=== PATIENT | male | born 1980 | race African-American/Black ===

== ENCOUNTER 2024-04-16 21:37 | Inpatient (IN) | payer OTHER ==
[2024-04-16 22:15] VITALS: BMI 28.5
[2024-04-16] MEDS ORDERED: LOPERAMIDE HCL 2 MG CAPSULE PO PRN (22:23)
[2024-04-16] MEDS ORDERED: NALOXONE HCL 0.4 MG/ML VIAL IVPUSH PRN (22:23)
[2024-04-16] MEDS ORDERED: NICOTINE POLACRILEX 2 MG LOZENGE BC PRN (22:23)
[2024-04-16] MEDS ORDERED: POLYETHYLENE GLYCOL (HEALTHYLAX) 3350 17 GM PACKET PO PRN (22:23)
[2024-04-16] MEDS ORDERED: BENZOCAINE/MENTHOL (CHLORASEPTIC ) LOZENGE MM PRN (22:23)
[2024-04-16] MEDS ORDERED: NICOTINE POLACRILEX 2 MG GUM BUC PRN (22:23)
[2024-04-16] MEDS ORDERED: BENZONATATE 200 MG CAPSULE PO PRN (22:23)
[2024-04-16] MEDS ORDERED: NALOXONE (NARCAN) HCL 4 MG/0.1 ML SPRAY NS PRN (22:23)
[2024-04-16] MEDS ORDERED: IBUPROFEN 400 MG TABLET (FP) PO PRN (22:23)
[2024-04-16] MEDS ORDERED: MAG HYDROX/AL HYDROX/SIMETH 30 ML UNIT-DOSE CUP PO PRN (22:23)
[2024-04-16] MEDS ORDERED: guaiFENesin 600 MG TABLET.ER (FP) PO PRN (22:23)
[2024-04-16] MEDS ORDERED: MAGNESIUM HYDROX 2400MG/30ML ORAL SUSPENSION 30 ML CUP PO PRN (22:23)
[2024-04-16] MEDS ORDERED: ACETAMINOPHEN 325 MG TABLET (FP) PO PRN (22:23)
[2024-04-16] MEDS ORDERED: IBUPROFEN 600 MG TABLET (FP) PO PRN (22:23)
[2024-04-16] MEDS: MELATONIN 5 MG TABLETS PO SCH (23:33)
[2024-04-17] MEDS: PRENATAL VITAMINS W/ FOLIC ACID TABLET (FP) PO SCH (09:00)
[2024-04-17] MEDS: hydrOXYzine PAMOATE 25 MG CAPSULE (FP) PO PRN (10:21)
[2024-04-17] MEDS: OLANZapine 7.5 MG TABLET PO SCH (21:22)
[2024-04-17] MEDS: METHOCARBAMOL 500 MG TABLET PO PRN (21:22)
[2024-04-17] MEDS: THIAMINE 100 MG TABLET PO SCH (21:23)
[2024-04-18] MEDS: OLANZapine 2.5 MG TABLET PO PRN (10:56)
[2024-04-18] MEDS: OLANZapine 7.5 MG TABLET PO SCH (21:43)
[2024-04-20] MEDS: OLANZapine 10 MG TABLET PO SCH (21:07)
[2024-04-22] MEDS: METHYL SALICYLATE/MENTHOL 30 GM TUBE TP SCH (21:12)
[2024-04-23] MEDS: OLANZAPINE 20 MG, OLANZAPINE 5 MG PO SCH (21:16)
[2024-04-23] MEDS ORDERED: OLANZapine 10 MG TABLET PO SCH (22:00)
[2024-04-26 17:23] LABS: HIV INTERPRETATION NEGATIVE (NEGATIVE)
[2024-04-28 06:45] VITALS: BP 101/60; PULSE 88; RESP 16; TEMP 97.9
== END 2024-04-28 11:44 | disposition home or self-care (01) | DRG 772 ==
LOC: YASAS 21:37 → Y3NR 23:11 → Y5N 04-17 11:16
PROVIDERS: ADMIT Allergy & Immunology; ATTEND Psychiatry & Neurology Pain Medicine
PROC: HZ42ZZZ Group Counseling for Substance Abuse Treatment, Cognitive-Behavioral (ICD-10-PCS; principal; 2024-04-16)
DX: F10.20 Alcohol dependence, uncomplicated (principal); F16.20 Hallucinogen dependence, uncomplicated; F18.20 Inhalant dependence, uncomplicated; F12.20 Cannabis dependence, uncomplicated; F17.210 Nicotine dependence, cigarettes, uncomplicated; F31.9 Bipolar disorder, unspecified; F25.9 Schizoaffective disorder, unspecified; F19.282 Other psychoactive substance dependence with psychoactive substance-induced sleep disorder; F19.24 Other psychoactive substance dependence with psychoactive substance-induced mood disorder; Z59.01 Sheltered homelessness
CPT/HCPCS: 36415; 80305; 80307; 86803; 87389

== ENCOUNTER 2024-05-16 20:43 | Inpatient (IN) | payer OTHER ==
[2024-05-16 21:13] VITALS: BMI 30.4
[2024-05-16] MEDS ORDERED: POLYETHYLENE GLYCOL (HEALTHYLAX) 3350 17 GM PACKET PO PRN (21:26)
[2024-05-16] MEDS ORDERED: LOPERAMIDE HCL 2 MG CAPSULE PO PRN (21:26)
[2024-05-16] MEDS ORDERED: BENZOCAINE/MENTHOL (CHLORASEPTIC ) LOZENGE MM PRN (21:26)
[2024-05-16] MEDS ORDERED: MAGNESIUM HYDROX 2400MG/30ML ORAL SUSPENSION 30 ML CUP PO PRN (21:26)
[2024-05-16] MEDS ORDERED: NICOTINE POLACRILEX 2 MG LOZENGE BC PRN (21:26)
[2024-05-16] MEDS ORDERED: ACETAMINOPHEN 325 MG TABLET (FP) PO PRN (21:26)
[2024-05-16] MEDS ORDERED: MAG HYDROX/AL HYDROX/SIMETH 30 ML UNIT-DOSE CUP PO PRN (21:26)
[2024-05-16] MEDS ORDERED: IBUPROFEN 400 MG TABLET (FP) PO PRN (21:26)
[2024-05-16] MEDS ORDERED: NALOXONE (NARCAN) HCL 4 MG/0.1 ML SPRAY NS PRN (21:26)
[2024-05-16] MEDS ORDERED: guaiFENesin 600 MG TABLET.ER (FP) PO PRN (21:26)
[2024-05-16] MEDS ORDERED: BENZONATATE 200 MG CAPSULE PO PRN (21:26)
[2024-05-16] MEDS ORDERED: IBUPROFEN 600 MG TABLET (FP) PO PRN (21:26)
[2024-05-16] MEDS: MELATONIN 5 MG TABLETS PO SCH (22:58)
[2024-05-16] MEDS: THIAMINE 100 MG TABLET PO SCH (22:58)
[2024-05-16] MEDS: hydrOXYzine PAMOATE 25 MG CAPSULE (FP) PO PRN (23:00)
[2024-05-17] MEDS: PRENATAL VITAMINS W/ FOLIC ACID TABLET (FP) PO SCH (10:55)
[2024-05-17] MEDS: NICOTINE 14 MG/24 HOURS TOPICAL PATCH TD SCH (10:55)
[2024-05-19] MEDS: OLANZapine 10 MG TABLET PO SCH (21:15)
[2024-05-28 11:15] VITALS: BP 114/66; PULSE 110; RESP 16; TEMP 97.5
[2024-05-28 12:10] LABS: BASO % 0.9 % (0-2.0); EOS % 6.9 % (0-4.5); HEMATOCRIT 39.9 % (35.4-49); HEMOGLOBIN 13.4 GM/dL (11.7-16.9); LYMPH % 44.7 % (8-40); MCH 31.5 pg (25.7-33.7); MCHC 33.6 g/dl (32.0-35.9); MEAN CELL VOLUME 93.7 fl (80-96); MEAN PLT VOLUME 9.1 fl (7.5-11.1); MONO % 12.4 % (3.8-10.2); NEUT % 35.1 % (42.8-82.8); PLATELET COUNT 215 10^3/uL (134-434); RBC 4.26 M/mm3 (4.00-5.60); RDW 14.4 % (11.9-15.9); WHITE BLOOD COUNT 4.6 K/mm3 (4.0-10.0)
[2024-05-28 12:14] LABS: POTASSIUM 4.2 mmol/L (3.5-5.1)
[2024-05-28 12:15] LABS: BLOOD UREA NITROGEN 15.5 mg/dL (7-18); CALCIUM 9.2 mg/dL (8.5-10.1); MAGNESIUM 2.1 mg/dL (1.8-2.4)
[2024-05-28 12:16] LABS: ALBUMIN 3.5 g/dl (3.4-5.0)
[2024-05-28 12:18] LABS: CREATININE 1.1 mg/dL (0.55-1.3)
[2024-05-28 12:20] LABS: BILIRUBIN,TOTAL 0.3 mg/dL (0.2-1); TOT PROT 7.2 g/dl (6.4-8.2)
[2024-05-28 12:43] LABS: SYPHILIS W/ RPR CONF NON-REACTIVE (NONREACTIVE)
[2024-05-28 13:12] LABS: HCV DIAGNOSTIC IN-HOUSE W/RFLX NON-REACTIVE (NONREACTIVE); HIV INTERPRETATION NEGATIVE (NEGATIVE)
== END 2024-05-28 10:26 | disposition home or self-care (01) | DRG 772 ==
LOC: YASAS 20:43 → Y3NR 22:18 → Y3W 05-17 11:45
PROVIDERS: ADMIT Psychiatry & Neurology Pain Medicine; ATTEND Psychiatry & Neurology Pain Medicine
PROC: HZ42ZZZ Group Counseling for Substance Abuse Treatment, Cognitive-Behavioral (ICD-10-PCS; principal; 2024-05-16)
DX: F16.20 Hallucinogen dependence, uncomplicated (principal); F12.20 Cannabis dependence, uncomplicated; F17.210 Nicotine dependence, cigarettes, uncomplicated; F19.282 Other psychoactive substance dependence with psychoactive substance-induced sleep disorder; F19.24 Other psychoactive substance dependence with psychoactive substance-induced mood disorder; F20.9 Schizophrenia, unspecified; F43.10 Post-traumatic stress disorder, unspecified; Z59.00 Homelessness unspecified
CPT/HCPCS: 36415; 80053; 80305; 80307; 82652; 83735; 85025; 86780; 86803; 87389; 87491; 87591; 87661; 87811